=== PATIENT | female | born 1955 | race Caucasian/White ===

== ENCOUNTER → 2019-09-30 07:42 | Outpatient (CLI) | payer OTHER, SELFPAY ==
--- NOTE | 2019-09-30 | DI.MRI.S_ITS ---
PROCEDURE: MR BRAIN (IAC) WWO CON INDICATIONS: Sensorineural hearing loss, unilateral, left ear, TECHNIQUE: Noncontrast sagittal T1 spin echo, axial FLAIR, axial gradient echo, axial diffusion and ADC through the brain. Axial thin-slice 3D CISS, coronal TruFISP, axial T1 spin echo with fat saturation through the internal auditory canals. After the administration of contrast, thin slice axial and coronal T1 spin echo with fat saturation through the internal auditory canals, and axial T1 spin echo with fat saturation through the brain. COMPARISON: None. FINDINGS: Image quality: Excellent. Cerebellopontine angles: No cerebellopontine angle masses. Inner ear structures appear normally formed. No suspicious enhancement in the internal auditory canal or along the course of the 7th cranial nerve. CSF spaces: Ventricles are normal in size and shape. No extra-axial fluid collections. Basal cisterns are patent. Brain: No intracranial bleeds or mass effects. Degroot-white matter interface is intact. No abnormal intracranial enhancement. Mild diffuse age appropriate volume loss. Minimal degree of patchy high FLAIR signal within the periventricular and subcortical white matter. Diffusion weighted images demonstrate no acute ischemic insults. Brainstem appears normal. Normal intravascular flow voids are present. Skull and face: Calvarial marrow signal is normal. Orbits appear normal. Sinuses: Sinuses and mastoids are clear. IMPRESSION: 1. No aspiration for hearing loss. Negative evaluation of the internal auditory canals. 2. No acute process. No recent infarct. 3. Mild volume loss. Minimal small vessel ischemic disease. Dictated by: Karin Ledesma M.D. on 09/30/2019 at 9:43 Approved by: Karin Ledesma M.D. on 09/30/2019 at 9:45
== END ==
PROVIDERS: PCP Physician Assistant Medical; Referring Provider Otolaryngology; Visit Provider Otolaryngology
DX: H90.42 Sensorineural hearing loss, unilateral, left ear, with unrestricted hearing on the contralateral side (principal); H93.13 Tinnitus, bilateral
CPT/HCPCS: 70553

== ENCOUNTER → 2021-04-16 11:32 | Outpatient (CLI) | payer MEDICARE, OTHER, SELFPAY ==
[2021-04-16 15:31] LABS: COVID19 -Nasal RAPID Negative (Negative)
== END ==
PROVIDERS: PCP Physician Assistant Medical; Referring Provider Physician Assistant; Visit Provider Physician Assistant
DX: Z01.812 Encounter for preprocedural laboratory examination (principal); Z20.822 Contact with and (suspected) exposure to COVID-19
CPT/HCPCS: 87635; C9803

== ENCOUNTER 2021-04-17 05:53 | Day surgery (SDC) | payer MEDICARE, OTHER, SELFPAY ==
[2021-04-12 09:48] VITALS: BMI 19.1
[2021-04-17] VITALS (17 sets, daily range): BP systolic 83–144; BP diastolic 47–95; PULSE 78–95; RESP 8–18; TEMP 36.2–37.7; O2SAT 93–100; BMI 19.1
--- NOTE | 2021-04-17 06:00 | DI.RAD.S_ITS ---
PROCEDURE: XR HIP W PEL IF DONE LT 2V INDICATIONS: prosthesis placement TECHNIQUE: AP pelvis and lateral view of the left hip acquired. COMPARISON: [facility], [place], XR HIP W PEL IF DONE LT 2V, 04/17/2021, 10:25. FINDINGS: Bones: Patient is status post left hip arthroplasty, with hardware components in expected positions. The hip joint appears congruent. The visualized bony structures appear intact. Soft tissues: Overlying postoperative changes are noted. No suspicious soft tissue densities. IMPRESSION: Intraoperative images demonstrating left hip arthroplasty. Dictated by: Dang Lauren M.D. on 04/17/2021 at 14:31 Approved by: Dang Lauren M.D. on 04/17/2021 at 14:32
[2021-04-17] MEDS: CELECOXIB 200 MG CAPSULE PO (06:59)
[2021-04-17] MEDS: ACETAMINOPHEN 325 MG TABLET 975 MG PO (06:59)
[2021-04-17] MEDS: PREGABALIN 75 MG CAPSULE PO (06:59)
[2021-04-17] MEDS: VANCOMYCIN 1,000 MG/200 ML PIGGYBACK 200 MG IV (07:00)
[2021-04-17] MEDS: LACTATED RINGERS 1,000 ML 42 ML IV ×2 (07:01→09:51)
--- NOTE | 2021-04-17 07:43 | PM.PREOP ---
Pre-operative Note COVID-19 COVID-19 status: Negative Interval Note History & Physical reviewed/Exam performed by Physician: Yes Changes to H&P: No
--- NOTE | 2021-04-17 07:44 | P.OP_ITS ---
Operative Date/Time/Diagnoses Date of procedure: 04/17/21 Time of procedure: 07:55 Pre-op diagnosis: left hip OA Post-op diagnosis: same Procedure & Clinicians Procedure: left total hip arthroplasty anterior approach Same procedure as scheduled: Yes Indications: The patient has had progressively worsening left hip pain with radiographic reyes ges consistent with arthritis. Non-operative management has failed and the patient has requested total hip replacement. The risks, benefits and alternatives to surgery were discussed with the patient prior to proceeding. Risks discussed included, but were not limited to, failure to relieve pain, leg length discrepancy, dislocation, stiffness, infection, nerve damage, deep venous thrombosis, pulmonary embolism, stroke, coma, heart attack, permanent paralysis and , as well as the potential need for eventual revision of the prosthetic. Surgeon: Adelia Obrien Senior Ui Developer: Benoit Palma Anesthesia Type: General and Spinal Operative Notes Findings: Severe left hip osteoarthritis, good stability, adequate bone Closure Type: primary Specimen(s): none sent Prosthetic devices, grafts, tissues, transplants, or devices: [employer] anthology standard offset size 3, 48 mm R3 acetabulum, minus 3 x 32 mm head, two 6.5 mm screw Estimated Blood Loss (mL): 250 Blood products transfused: none Procedure in detail: The patient was brought to the operating room. Patient was carefully positioned in the supine position. Time-out was performed and antibiotics were given. Anesthesia was induced. She was positioned in the on the table in order to allow hyperextension of the hip. The left lower extremity was prepped and draped in a standard sterile fashion. An anterior left hip incision was made 1 fingerbreadth lateral to the anterior superior iliac spine and extended distally towards the greater trochanter. Dissection was carried out through skin and subcutaneous tissues. Superficial hemostasis was achieved. The fascia over the tensor fascia fredo was defined and incised with a knife. Two Allis clamps were used to grasp the fascia. Tensor fascia fredo was retracted laterally. A gelpi retractor was placed. Dissection was carried out down along the neck. The circumflex vessels were carefully identified and cauterized with the Aqua Mantis. There was good visualization of the femoral neck. A Cobra was placed superior to the neck and the gluteus fibers were carefully stripped from that superior aspect of the capsule. A 2nd retractor was placed along the inferior aspect of the neck. The rectus insertion along the capsule was partially released. A 3rd retractor that was then gently placed over the rim of the acetabulum under the rectus. Capsule was carefully incised and released from the intertrochanteric line circumferentially superior to the mid sagittal line and inferiorly to the mid sagittal line until the lesser trochanter was palpable. A tag stitch was placed both in the superior and inferior limb of the capsular insertion. Along the acetabulum capsule was also released up to the mid sagittal 12:00 position. A portion of the labrum was resected. A saw was used to perform an osteotomy at the level of the intertrochanteric line and the junction of the superior femoral neck leaving approximately 1 finger breath of residual inferior neck above the lesser trochanter. A 2nd cut was made along the femoral neck at the base of the head and a napkin ring of neck was removed. Corkscrew was placed in the femoral head and the head was removed without difficulty. Retractors were then repositioned around the acetabulum. Residual labrum was resected and additional osteophytes were removed. A reamer that was 4 mm below the templated size was placed by hand in the acetabulum and it was reamed to centralize the acetabulum. It was then reamed up to 2 under the templated size and fluoroscopy was brought in to confirm the position of the reaming and depth of reaming. I reamed 1 under the anticipated size. A trial cup was placed and noted that it was appropriately sized and fluoroscopy confirmed position and depth. The component was open and inserted without difficulty fluoroscopic imaging was used to confirm that the cup had been adequately seated and was well positioned. It was further stabilized with 2 screws. Neutral poly liner was placed. The cup was tested and noted to be stable. Attention was then directed to the femur. The femur was gently hyperextended additional capsular release was performed as needed in order to allow adequate visualization of the proximal femur with elevation of the femur. Patient was placed in a hyperextended slightly adducted position with maximum external rotation. Box osteotome was used to check for any residual neck as well as sclerotic bone along the trochanter. [place] pepper was placed in the femur. Additional broaching was performed. Canal finder was used to determine the alignment of the canal and position. Size 1 broach was placed. The canal was then appropriately broached up to the templated size as long as there was adequate stability of the broach and serial advancement of the broach without excessive impingement. Specific attention was directed at avoiding varus attempting to direct the distal aspect of the broach more anteriorly and avoiding excessive anteversion. Trial reduction showed acceptable range of motion, good stability, no posterior impingement, religion of leg length and appropriate lateral shuck. I also hyperflexed the hip and checked that there was no impingement anteriorly and there was good stability with flexion, adduction and internal rotation. Marcaine and Exparel were injected. The stem was placed without difficulty. Repeat trial reduction and x-ray showed acceptable overall position, length, and no evidence of the femoral fracture. Final head was placed. Wound was meticulously irrigated with normal saline. The hip was reduced and additional Exparel and Marcaine were injected. The capsule was closed with interrupted nonabsorbable sutures. The fascia of the tensor was closed with interrupted and running Vicryl. No drain was placed. Any tensor fascia fredo muscle that appeared to be contused or injured which was a minimal amount was carefully resected. Capsule around the tensor was injected with Exparel and Marcaine. The skin was closed with barbed stitches for the subcutaneous tissue and skin. We also used surgical glue. The wound was dressed sterilely. Brief Betadine soak was also used and was meticulously irrigated with normal saline. Patient was transferred to recovery room in satisfactory condition. Complications: none Post-operative Condition: stable Disposition: Acute Care Plan for aftercare: The patient will be maintained on a standard total hip replacement protocol with weight bearing as tolerated and anterior hip precautions. The patient will receive Aspirin and sequential compression devices for DVT prophylaxis. The patient will be discharged home when safe for the home environment.
[2021-04-17] MEDS: CEFAZOLIN 2 GM/20 ML SYRINGE IV ×2 (08:00→17:01)
[2021-04-17] MEDS: TRANEXAMIC ACID 1,000 MG VIAL 1000 MG INJ ×2 (08:05→10:00)
--- NOTE | 2021-04-17 08:22 | SUR.OPER ---
Patient supine on padded Jarrell table, one arm on padded arm board at <90, other arm padded and secured with tape across patient's chest, both legs secured in padded traction boots and positioned per surgeon, padded post at patient's groin, pressure points checked and padded.
[2021-04-17] MEDS: BUPIVACAINE LIPOSOME 266 MG/20 ML VIAL INJ (08:24)
[2021-04-17] MEDS: BUPIVACAINE 0.25% (PF) 60 ML, EPINEPHrine 0.3 MG INJ (08:25)
[2021-04-17] MEDS: SODIUM CHLORIDE IRRIG SOLUTION 250 ML, POVIDONE-IODINE SPONGE STICKS 1 APPLIC IRR (08:28)
--- NOTE | 2021-04-17 10:24 | DI.RAD.S_ITS ---
PROCEDURE: XR HIP W PEL IF DONE LT 2V INDICATIONS: TOTAL LEFT HIP REPLACEMENT TECHNIQUE: AP pelvis and lateral view of the left hip acquired. COMPARISON: [facility], [place], XR HIP W PEL IF DONE LT 2V, 04/17/2021, 10:08. [facility] [place], [place], XR PELVIS WITH LATERAL HIP LEFT, 03/01/2021, 15:12. [facility], [place], XR PELVIS WITH LATERAL HIP LEFT, 12/13/2019, 8:10. FINDINGS: Bones: Patient is status post left hip arthroplasty, with hardware components in expected positions. The hip joint appears congruent. The visualized bony structures appear intact. Soft tissues: Overlying postoperative changes are noted. No suspicious soft tissue densities. IMPRESSION: Normal postoperative examination. Dictated by: Hammad Hathaway M.D. on 04/17/2021 at 9:45 Approved by: Hammad Hathaway M.D. on 04/17/2021 at 9:46
[2021-04-17] MEDS: fentaNYL 100 MCG/2 ML INJ IV (10:40)
[2021-04-17] MEDS: HYDROMORPHONE 2 MG INJ IV ×2 (10:42→10:54)
[2021-04-17] MEDS: ONDANSETRON 4 MG/2 ML INJ IV (10:43)
--- NOTE | 2021-04-17 11:11 | SUR.PHASEI ---
Report to ALYSSA Borja. Plan to transport at 1125 due to medication hold time
--- NOTE | 2021-04-17 12:07 | PC.NURSE ---
Patient received from PACU, oriented to room and call light. VSs, pain well controlled at this time at 3/10 to left hip. Aquacel dressing in place, CDI. No urge to void yet. Monitor for void post surgery. Tolerating ice water at this time. Bilateral calf SCD's in place. Patient looking over menu, no further questions at this time. P.T. eval when appropriate, maintain anterior hip precautions. Bed alarm on for safety.
[2021-04-17] MEDS: ACETAMINOPHEN 325 MG TABLET 650 MG PO ×2 (14:45→20:53)
--- NOTE | 2021-04-17 15:36 | PT.IIE ---
Current Diagnoses Unilateral primary osteoarthritis, left hip (04/17/21) Surgery Performed Operation Date: 04/17/21 07:45 Actual Procedures p Total Hip Arthroplasty/Anterior Approach(Left) - Adelia Obrien MD Medical History (Last Updated 04/12/21 @ 10:13 by Divine Lock RN) Anxiety and depression Arthritis Easy bruisability Hearing impaired Osteoarthritis Osteoporosis Physical Therapy Inpatient Evaluation/Re-Eval M1 PT/OT-IP Prior Functional Status Start: 04/17/21 14:06 Freq: NEEDED Status: Active Protocol: Document 04/17/21 15:36 AW (Rec: 04/17/21 16:29 AW [id number]) Medical Review Prior Functional Status Medical History Reviewed Yes Communication WNL Mobility and Gait Pt states her mobility is slow to wake up, requiring stretches, limping, and coffee daily before she really feels confident and is able to move about without assistive device. She lives alone and tends to a large flock of chickens, some goats, cats, and a dog. Pt reports a fall from a ladder which was noninjurious but denies any other falls. Activities of Daily Living and IADL's Independent with ADL's and IADL's. Pt drives, manages her own meds and finances. Prior Functional Level (Other details) Pt has remote history of bilateral knee arthroscopy and reports progressively worsening right knee pain. Social History Household Members none Living Arrangements House Number of Floors (Floors) One Floor Number of Stairs To Enter/Railing? 3 DANIEL with no rail. Home Environment Standard Height Toilet,Tub/ Shower Home Equipment Four Wheel Walker,Hand Held Shower Employment Status Retired Additional Social History Comment Pt sleeps on the top layer of a trundle bed which she thinks is no taller than the hospital bed. She bought a folding tripod cane but has not used it yet. She has a sink on the right side of her toilet which she can use to help up and down. 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 She states her neighbor, Kirsten, will take her home and check on her but she has made no arrangements for anyone to stay with her. They would have to sleep on the floor and that would be a real burden. M2 PT-IP Current Condition Start: 04/17/21 14:06 Freq: NEEDED Status: Active Protocol: Document 04/17/21 15:36 AW (Rec: 04/17/21 16:29 AW [id number]) Physical Therapy Current Condition Current Condition Evaluation Date 04/17/21 Treatment Diagnosis L NICOLE with anterior approach; impaired mobility and gait. Onset Date 04/17/21 M3 PT-IP Subjective Start: 04/17/21 14:06 Freq: NEEDED Status: Active Protocol: Document 04/17/21 15:36 AW (Rec: 04/17/21 16:29 AW [id number]) Subjective Physical Therapy Visit Type Type Initial Evaluation Visit Start Time 01:56 Visit Stop Time 15:36 Total Visit Minutes 30 Physical Therapy Visit Comments Patient Comments Pt is willing to participate with PT. She would like to use the commode. Patient Goals Return home with check-ins from neighbor. Therapy Pain Assessment Pain When Pain Assessed During Mobility Pain Present Pain Present Pain Reported Location Left Hip Intensity 4 Scale Used Numeric (0 - 10) Pain Management Techniques Apply Cold,Modification of Treatment,Re-positioning M4 PT-IP Mobility and Gait Start: 04/17/21 14:06 Freq: NEEDED Status: Active Protocol: Document 04/17/21 15:36 AW (Rec: 04/17/21 16:37 AW [id number]) PT-Bed Mobility Assessment Supine to Sit Supine to Sit Contact Guard Assistance Sit to Supine Sit to Supine Minimal Assistance,1 Person Assistance Scooting Scooting to Edge of Bed Standby Assistance PT-Transfer Assessment Sit to and From Stand Sit to and from Stand Standby Assistance,Contact Guard Assistance,Use of Upper Extremities Equipment Transfer Assistive Device Gait Belt,Front Wheeled Walker Orthotic/Prosthetic Devices or Brace: No Transfers Transfer Destination Bed,Bedside Commode Transfer Technique Stand Step Pivot Transfer Ability Level of Assist Contact Guard Assistance Comments Mobility Comments Pt was lying in bed as PT arrived. BP was 141/59 HR 86 SpO2 100% on room air. She reported mild lightheadedness but wanted to get up to the commode. PT educated pt on anterior hip precautions and functional application. From flat bed, she needed CGA to move her legs to right side of bed as she would at home. She scooted forward and reported seeing double/dizziness. Symptoms subsided quickly and pt stood CGA. She used FWW to shift weight laterally as PT educated pt on WBAT status. She transferred 90 degrees to her left to the [facility] [place]. She was able to void and complete pericare. She stood SBA with cues to push off the [facility] arms and used the walker to transfer back to bed SBA. Return to supine required min A x 1 for elevation of the LLE . BP was 129/47 HR 84 and pt reported nausea. Pt was left with call light in reach and bed alarm on. PT informed RN of pt's mobility status and nausea. Gait Assessment Gait Gait Assistance Required: Contact Guard Assist Distance (Feet) 3 Able to Maintain Weight Bearing Status Yes During Gait Assistive Devices Assistive Device Gait Belt,Front Wheeled Walker Orthotic/Prosthetic Devices or Brace: No Gait Deviations General Gait Pattern Antalgic,Step-to Gait Factors Limiting Gait Function Factors Limiting Gait Function Decreased Strength,Pain Comments Gait Comments Steps taken during transfer only. Did not progress to gait due to dizziness and nausea. Stair Climbing Assessment Comments Stair Climbing Comments Not assessed. PT-Balance Assessment Sitting Balance and Reactions Static Sitting Balance Ability Good Dynamic Sitting Balance Ability Good Standing Balance and Reactions Static Standing Balance Ability Good Dynamic Standing Balance Ability Good Device Used FWW M5 PT-IP Objective Assessments Start: 04/17/21 14:06 Freq: NEEDED Status: Active Protocol: Document 04/17/21 15:36 AW (Rec: 04/17/21 16:37 AW [id number]) Orientation Orientation/Cognition Level of Alertness Alert Orientation Name,Day of Week,Place, Situation Language Function Ability No Deficits Noted Safety Awareness Understands Safety Issues Memory Description No Deficits Noted Gross Range of Motion Lower Extremity ROM Assessment Left Impaired Strength Lower Extremity Strength Assessment Left Impaired Hip 3-/5 Knee 4/5 Ankle 4+/5 Comments Strength Comments RLE grossly 4+/5 Sensation Assessment Sensation Gross Sensation WNL M6 PT-IP Treatment Start: 04/17/21 14:06 Freq: NEEDED Status: Active Protocol: Document 04/17/21 15:36 AW (Rec: 04/17/21 16:37 AW [id number]) Physical Therapy Treatment Exercises Exercises Ankle Pumps,Gluteal Sets,Heel Slides Education Education Provided Precautions,Weight Bearing Status,Post-Op Packet,Safety M7 PT-IP Assessment and Plan Start: 04/17/21 14:06 Freq: NEEDED Status: Active Protocol: Document 04/17/21 15:36 AW (Rec: 04/17/21 16:47 AW [id number]) PT Summary Assessment and Plan Potential Rehabilitation Potential Good Status of Condition at Evaluation Evolving Summary Impairments Pain,ROM,Strength,Balance,Bed Mobility,Transfers,Gait Assessment Summary Caitlyn is an active 65 yo woman seen for PT evaluation on POD0 following L NICOLE with anterior approach. She is independent in all regards at baseline and lives alone. On assessment, pt required CGA/ min assist for bed mobility and transfers. Did not progress to gait due to symptoms of nausea and lightheadedness. Discussed setting up caregiver training with her neighbor for tomorrow but pt was unsure what time her neighbor would be available. PT anticipates pt will be safe to discharge home with assist and outpatient PT once medically stable but will need to progress her gait and complete stair training ( preferably with caregiver) prior to discharge. Will continue to encourage pt to have someone stay with her for first few days if possible. She has 4WW but will likely need FWW for home. Goals Bed Mobility Goal Independent Transfer Goal Independent,Front Wheeled Walker Gait Goal Standby Assistance,Front Wheel Walker Gait Distance 150 Other Goals up/down 3 steps with cane (no rails) CGA Days to Meet Goals 2 Frequency of Treatment Frequency Of Treatment Twice a Day Treatment Plan Physical Therapy Treatment Plan Bed Mobility Training,Transfer Training,Gait Training, Therapeutic Exercise,Balance Retraining,Post Op Education, Discharge Planning,Hot or Cold Pack Other Recommendations and Next Treatment set up caregiver training for [facility] PM session or complete in AM if neighbor is present; review ther ex; gait training with FWW; stair training with or without neighbor Precautions Anterior Hip Precautions No Hip Extension,No Hip External Rotation Weight Bearing Status Weight Bearing Status Weight Bear as Tolerated Allowed Weight Bearing Amount (enter % WBAT LLE or #) (%) Recommendations To Nursing Amount of Assist Needed 1 Person Assist Discharge Recommendations PT Discharge Recommendations Home with Assistance, Outpatient PT Equipment Needed for Home Before FWW Discharge Transportation Needs at Discharge Private Vehicle
[2021-04-17] MEDS: SODIUM CHLORIDE 0.9% 250 ML 21 ML IV (17:08)
[2021-04-17] MEDS: ASPIRIN EC 81 MG TABLET PO (20:53)
[2021-04-17] MEDS: DOCUSATE 100 MG CAPSULE PO (20:53)
[2021-04-17] MEDS: MELOXICAM 7.5 MG TABLET PO (20:53)
[2021-04-17] MEDS: SODIUM CHLORIDE 0.9% FLUSH 10 ML IV (20:54)
[2021-04-18] VITALS: BP 110/64; PULSE 76; RESP 16; TEMP 37.5; O2SAT 96
[2021-04-18] MEDS: SODIUM CHLORIDE 0.9% FLUSH 10 ML IV (00:32)
[2021-04-18] MEDS: CEFAZOLIN 2 GM/20 ML SYRINGE IV (00:32)
[2021-04-18 04:10] VITALS: BP 104/57; PULSE 94; RESP 16; TEMP 37.3; O2SAT 96
[2021-04-18 07:38] LABS: Hematocrit 33.9 % (36-46); Hemoglobin 11.6 g/dL (12.0-16.0)
[2021-04-18 09:32] VITALS: BP 125/72; PULSE 89; RESP 18; TEMP 36.8; O2SAT 96
[2021-04-18] MEDS: ASPIRIN EC 81 MG TABLET PO (10:04)
[2021-04-18] MEDS: ACETAMINOPHEN 325 MG TABLET 650 MG PO (10:04)
[2021-04-18] MEDS: MELOXICAM 7.5 MG TABLET PO (10:08)
--- NOTE | 2021-04-18 10:34 | PT.IPTN ---
Addendum entered and electronically signed by Joana Huff PTA 04/18/21 12:46: 2 pm caregiver training with friend/ neighbor. Original Note: Current Diagnoses Unilateral primary osteoarthritis, left hip (04/17/21) Surgery Performed Operation Date: 04/17/21 07:45 Actual Procedures p Total Hip Arthroplasty/Anterior Approach(Left) - Adelia Obrien MD Physical Therapy Treatment Note M2 PT-IP Current Condition Start: 04/17/21 14:06 Freq: NEEDED Status: Active Protocol: Document 04/18/21 09:39 SP (Rec: 04/18/21 12:45 SP [id number]) Physical Therapy Current Condition Current Condition Evaluation Date 04/17/21 Treatment Diagnosis L NICOLE with anterior approach; impaired mobility and gait. Onset Date 04/17/21 M3 PT-IP Subjective Start: 04/17/21 14:06 Freq: NEEDED Status: Active Protocol: Document 04/18/21 09:39 SP (Rec: 04/18/21 12:45 SP [email or web address]) Subjective Physical Therapy Visit Type Type Treatment Note Visit Start Time 09:39 Visit Stop Time 10:34 Total Visit Minutes 55 Notes Vitals taken during tx: supine: BP 135/76, HR 96 bpm seated EOB: 103/53 HR 100 Stand w/ FWW: 118/68 Post mobility seated: 101/64, HR 108 nonsymptomatic throughout tx. Number of ANALYTICS INTERN Visits 1 Physical Therapy Visit Comments Patient Comments Pt is willing to participate with PT. Patient Goals Return home with check-ins from neighbor. Therapy Pain Assessment Pain When Pain Assessed During Mobility Pain Present Pain Present Pain Reported Location Left Hip Intensity 4 Scale Used 4/10 L anterior hip pain during bedmob, 5/10 during gait/ stairs Description With Movement Pain Behaviors Facial Grimacing Pain Management Techniques Apply Cold,Distraction, Modification of Treatment,Re- positioning,Timing of Activity with Medications M4 PT-IP Mobility and Gait Start: 04/17/21 14:06 Freq: NEEDED Status: Active Protocol: Document 04/18/21 09:39 SP (Rec: 04/18/21 12:45 SP [email or web address]) PT-Bed Mobility Assessment Supine to Sit Supine to Sit Standby Assistance Scooting Scooting to Edge of Bed Standby Assistance PT-Transfer Assessment Sit to and From Stand Sit to and from Stand Standby Assistance,Use of Upper Extremities Equipment Transfer Assistive Device Gait Belt,Front Wheeled Walker Orthotic/Prosthetic Devices or Brace: No Transfers Transfer Destination Chair,Toilet Transfer Technique ambulated using FWW/4WW Transfer Ability Level of Assist Standby Assistance,Use of Upper Extremities Comments Mobility Comments Pt was laying in bed when arrived. ANALYTICS INTERN reviewed and pt performed post- op LLE ex: AP, quad/glut set, HS w/ self strap assist (pt able to don/ doff strap on L foot). HOB flat supine> sit, assisted LLE with strap to EOB self post instruction, scoot to EOB SBA . Sit>stand w/FWW sBA cued push from bed, gait to toilet approx 8 ft using FWW sBA step pivot and back up fully stand >sit w/ use of grab bar on R and toilet seated LUE sBA, pt positioned RLE front for comfort. Pt voided and self pericare SBA. Sit<>stand SBA to FWW, further distance gait to sink 10 ft, good positioning FWW SBA no LOB/ stable. Pt good balance wash hands unsupported. ANALYTICS INTERN provided 4WW for assessment use at home. Pt walked further distance into hallway to stairs, completed 3 stairs Min A R SPC ORTHOTIST OR PROSTHETIST on L to assimulated home set up, returned to room w/ 4WW stagger stepping heavy initially then decreased to moderate BUE WB on 4WW with proper use of brakes during RLE advancement, w/c follow but not needed, lead LLE with good maintaining L hip precautions no hip extension or ER approx 160 ft total. Pt returned to room chair SBA with proper 4WW brake mgt. ANALYTICS INTERN stated would like CGT in afternoon with friend that will help her with stair mgt and as needed, pt to call friend to set up. Pt had call light and all needs in reach before left. Gait Assessment Gait Gait Assistance Required: Standby Assistance Distance (Feet) 160 Able to Maintain Weight Bearing Status Yes During Gait Assistive Devices Assistive Device Gait Belt,Front Wheeled Walker ,4 Wheeled Walker Orthotic/Prosthetic Devices or Brace: No Gait Deviations General Gait Pattern Antalgic,Decreased Stride Length,Step-to Gait Factors Limiting Gait Function Factors Limiting Gait Function Decreased Strength,Pain Comments Gait Comments stagger step lead LLE and step to RLE using FWW in room, 4WW in hallway SBA. 2 stand rest breaks each distance for overall and BUE tiring recovery. Stair Climbing Assessment Evaluation Level of Assist On Stairs Minimal Assistance,1 Person Assistance Devices Stair Climbing Assistive Devices Straight Cane Technique/Endurance Stair Climbing Direction Ascend and Descend Stair Climbing Technique Step to Step Number of Steps Climbed 3 Stair Climbing Set # Repetitions (reps) 1 Comments Stair Climbing Comments Step to patterning SPC in RUE, ORTHOTIST OR PROSTHETIST Min A on L, stable no LOB . Cued quad facilitation during LLE stance during RLE repositioning to decrease risk of buckling, good demonstration. ANALYTICS INTERN suggested if can borrow 2nd cane for L would be easier on not needing 2nd person support required due to no HRs on her stairs at home. PT-Balance Assessment Sitting Balance and Reactions Static Sitting Balance Ability Good Dynamic Sitting Balance Ability Good Standing Balance and Reactions Static Standing Balance Ability Good Dynamic Standing Balance Ability Good Device Used FWW/ 4WW M5 PT-IP Objective Assessments Start: 04/17/21 14:06 Freq: NEEDED Status: Active Protocol: Document 04/17/21 15:36 AW (Rec: 04/17/21 16:37 AW [id number]) Orientation Orientation/Cognition Level of Alertness Alert Orientation Name,Day of Week,Place, Situation Language Function Ability No Deficits Noted Safety Awareness Understands Safety Issues Memory Description No Deficits Noted Gross Range of Motion Lower Extremity ROM Assessment Left Impaired Strength Lower Extremity Strength Assessment Left Impaired Hip 3-/5 Knee 4/5 Ankle 4+/5 Comments Strength Comments RLE grossly 4+/5 Sensation Assessment Sensation Gross Sensation WNL M6 PT-IP Treatment Start: 04/17/21 14:06 Freq: NEEDED Status: Active Protocol: Document 04/18/21 09:39 SP (Rec: 04/18/21 12:45 SP [email or web address]) Physical Therapy Treatment Exercises Exercises Ankle Pumps,Gluteal Sets,Quad Sets,Heel Slides Knee ROM Measurement approx 80deg L knee flexion w/ use strap during HS Education Education Provided Precautions,Weight Bearing Status,Post-Op Packet,Safety Other Treatments Other Treatment Performed good recall 2/2 and performance of hip precautions and recall with HO post op ex . M7 PT-IP Assessment and Plan Start: 04/17/21 14:06 Freq: NEEDED Status: Active Protocol: Document 04/18/21 09:39 SP (Rec: 04/18/21 12:45 SP [email or web address]) PT Summary Assessment and Plan Potential Rehabilitation Potential Good Status of Condition at Evaluation Evolving Summary Impairments Pain,ROM,Strength,Balance,Bed Mobility,Transfers,Gait Progress Towards Goals Progressing Toward Goals,Slow Progress due to Pain,Slow Progress due to Activity Tolerance Assessment Summary Pt SBA- Mod I during bed mob using strap on LLE for self mobility. Sit<>stand and gait 160 ft using FWW/ 4WW SBA, stable. Completed stairs with [place] for ORTHOTIST OR PROSTHETIST on L due to only has 1 SPC at home to use on 3 stairs. Pt required increased time and standing rest breaks x2 each direction due tiring during gait and stair mgt. Will assess caregiver training with friend to support stair mgt for 2 pm tx. Recommending home when medically cleared assist of friend as needed, she is set up with outpt therapy for next week. She reported will ask friends for assist with transportation for PT appts. Goals Bed Mobility Goal Independent Transfer Goal Independent,Front Wheeled Walker Gait Goal Standby Assistance,Front Wheel Walker Gait Distance 150 Other Goals up/down 3 steps with cane (no rails) CGA Days to Meet Goals 2 Frequency of Treatment Frequency Of Treatment Twice a Day Treatment Plan Physical Therapy Treatment Plan Bed Mobility Training,Transfer Training,Gait Training, Therapeutic Exercise,Balance Retraining,Post Op Education, Discharge Planning,Hot or Cold Pack Other Recommendations and Next Treatment CGT with friend gait w/ 4WW Focus and stair mgt 1-2 SPC. Precautions Anterior Hip Precautions No Hip Extension,No Hip External Rotation Other Precautions good recall 2/2 precautions Weight Bearing Status Weight Bearing Status Weight Bear as Tolerated Allowed Weight Bearing Amount (enter % WBAT LLE or #) (%) Recommendations To Nursing Amount of Assist Needed Standby Assistance,1 Person Assist Discharge Recommendations PT Discharge Recommendations Home with Assistance, Outpatient PT Transportation Needs at Discharge Private Vehicle
--- NOTE | 2021-04-18 10:57 | PM.DS.1 ---
History of Present Illness History of Present Illness Date Patient Seen: 04/18/21 Time Patient Seen: 08:30 Chief complaint: Left hip pain Narrative: Pain is mild. Denies fever or chills. No nausea or vomiting. Patient does have assistance at home. Discharge Providers Provider Discharge Date: 04/18/21 Primary care physician: Sheila Connolly PA-C Consults: 04/17/21 06:00 Consult to Anesthesiology Routine Comment: Consulting Provider: Anesthesiologist Reason for consultation: Regional block for post operative pain control 04/17/21 11:28 Consult to Discharge Planning Routine Comment: Consult to Physical Therapy Evaluate & Treat Comment: Physician Instructions: post op NICOLE protocol Consult to Respiratory Therapy Evaluate & Treat Comment: Physician Instructions: Evaluate and treat Discharge provider: Benoit Palma PA-C Summary Hospital Course Discharge Diagnosis: Left hip osteoarthritis Hospital Course: left total hip arthroplasty anterior approach Same procedure as scheduled: Yes Indications: The patient has had progressively worsening left hip pain with radiographic changes consistent with arthritis. Non-operative management has failed and the patient has requested total hip replacement. The risks, benefits and alternatives to surgery were discussed with the patient prior to proceeding. Risks discussed included, but were not limited to, failure to relieve pain, leg length discrepancy, dislocation, stiffness, infection, nerve damage, deep venous thrombosis, pulmonary embolism, stroke, coma, heart attack, permanent paralysis and , as well as the potential need for eventual revision of the prosthetic. Surgeon: Adelia Obrien Transportation Services Representative: Benoit Palma Anesthesia Type: General and Spinal Operative Notes Findings: Severe left hip osteoarthritis, good stability, adequate bone Closure Type: primary Specimen(s): none sent Prosthetic devices, grafts, tissues, transplants, or devices: [employer] anthology standard offset size 3, 48 mm R3 acetabulum, minus 3 x 32 mm head, two 6.5 mm screw Estimated Blood Loss (mL): 250 Blood products transfused: none Patient admitted to the hospital for left total hip arthroplasty, anterior approach. Patient consented to the same. Patient taken operating room on April 17, 2021. Patient back in her room recovering well as in stable condition. Patient will be discharged home today after physical therapy if safe for home environment. Exam Vital Signs (past 8 hours): - 04/18/21 04:10 04/18/21 09:32 Temperature 99.1 F 98.2 F Pulse Rate 94 H 89 Respiratory Rate 16 18 Blood Pressure 104/57 L 125/72 Pulse Oximetry 96 96 Oxygen Delivery Method Room Air Oxygen Flow Rate 0 Narrative Exam Narrative: 65-year-old female resting comfortably in bed no apparent distress. Dressing is Clean, dry, intact.. Motor functions intact bilateral lower extremities. Sensation grossly intact to light touch bilateral lower extremities. Objective Labs Result Diagrams: 04/18/21 07:13 Labs: Laboratory Results - last 24 hr 04/18/21 07:13 Hgb 11.6 L Hct 33.9 L PFSH Medical History Anxiety and depression Arthritis Easy bruisability Hearing impaired Osteoarthritis Osteoporosis Surgical History History of bilateral carpal tunnel release History of surgery Hx of arthroscopy of left knee Hx of arthroscopy of right knee Social History household members: none Smoking Status: Never smoker alcohol intake: current Discharge Assessment & Plan Assessment and Plan Assessment: Patient progressing as expected status post left total hip arthroplasty, anterior approach Plan of Treatment: Anterior hip precautions. Discharge home today in stable condition. Discharge Plan Discharge Plan Patient Disposition: Home Discharge orders & Medications Discharge Orders: Discharge (Order); Ordered 04/18/21 Ordered By: Benoit Palma Prescriptions: New acetaminophen 325 mg Tablet 650 mg PO TID Qty: 60 0RF aspirin 81 mg Tablet,Delayed Release (Dr/Ec) 81 mg PO BID Qty: 60 0RF docusate sodium 100 mg Capsule 100 mg PO BID Qty: 20 0RF ondansetron 4 mg Tablet,Disintegrating 4 mg PO Q4HR PRN (Reason: Nausea) 20 Days 0RF oxycodone 5 mg Tablet 5 mg PO Q3HR PRN (Reason: Pain, Moderate (4-6)) Qty: 60 0RF Continued cyclobenzaprine 10 mg Tablet 10 mg PO TID PRN (Reason: Muscle Spasm) 0RF meloxicam 7.5 mg Tablet 7.5 mg PO BID 0RF Discontinued acetaminophen 500 mg Tablet 1,000 mg PO Q6H PRN (Reason: Pain) 0RF Follow up/Referrals: Adelia Obrien MD [Physician] - (2 weeks) Sheila Connolly PA-C [Primary Care Provider] - Diet/Activity/Treatments Diet: Diet as Tolerated Activity: Weight-bearing as tolerated, anterior hip precautions Skin/Wound/Dressing Care Report to your healthcare provider any signs of infection, such as:: chills, fever, increased pain, unusual drainage and unusual redness Dressing: Keep clean and dry Visit Report/Discharge Packet Instructions: DI for Hip Replacement Stand Alone Forms: Surgery Discharge Discharge Data Primary Care Provider: Sheila Connolly Attending Provider: Adelia Obrien
--- NOTE | 2021-04-18 12:24 | CM.DANOTE ---
DCP: Case received, EMR reviewed and met with patient. Introduced self and role. Was able to obtain information regarding patient's baseline activity status prior to hospitalization. DCP assessment completed with information currently available. Patient is a 65 year old female who admitted yesterday morning to the care of the orthopedic team. PCP: Dr. Connolly. Payer: confirmed: Medicare/[employer]. Patient came to the hospital via private vehicle for a surgical procedure. Patient had left total hip arthroplasty, anterior approach. Patient has history of osteoarthritis. Met with patient in her room. Patient is alert and oriented, pleasant. Patient resides in [place] alone. She is independent at her baseline. She uses no DME at baseline, and drives. Patient recently retired in September, she was working at the [employer]. She has a friend that she mentioned, named Sophie, who should be able to assist her when she goes home. P: Patient is to discharge home today when cleared by P.T. Stacey Brower RN/Licensed Nurse Practitioner Stacey Brower RN/Licensed Nurse Practitioner Discharge Planning/Care Management CM Discharge Assessment Start: 04/18/21 12:22 Freq: Status: Active Protocol: Document 04/18/21 12:23 (Rec: 04/18/21 12:24 [id number]) Discharge Planning Assessment Assigned Customer Counter Representative Stacey Brower RN/Licensed Nurse Practitioner Advance Directives? No History Provided By Patient,Medical Record Prior Living Arrangements House Household Members spouse,none Type of transporation used prior to Drives own vehicle admit Independent with ADL's Yes Is patient alert and oriented? Yes Caregiver for Another No Barriers to Discharge No Discharge Plan Home Transportation Arrangement Friend Referrals Initiated None needed Whiteboard Updated in Patient Room with Yes name and ext. # of Customer Counter Representative Review Status In Process Next Review Type Continued Stay Review Pre-Anesthesia Assessment Start: 04/12/21 09:48 Freq: Status: Active Protocol: Document 04/12/21 09:48 CAB (Rec: 04/12/21 10:32 CAB [id number]) Pre-Anesthesia Assessment Patient Information Reviewed Via Phone Assessment Assessment Completed With Patient H&P Completed Within 30 Days No: Not identified at time of review Diagnostic Results BMP/CMP,CBC,EKG Comment Outside labs/EKG scanned, COVID screen @ [facility] 04/16/21 Primary Care Provider Sheila Connolly Seen Specialist in Last 12 Months Yes Specialist Seen Orthopedist Primary Language Austrian Tailor Fitter Required No Height 5 ft 5 in Weight 115 lb Body Mass Index (BMI) 19.1 Hearing Ability Hard of Hearing Visual Assist Magnifying Glass Dentition Type Teeth, Natural Present Barriers to Learning None Hx Anesthesia Reactions Yes: Hypotension s/p anesthesia, nausea Hx Family Anesthesia Reaction No Hx Malignant Hyperthermia No Hx Blood Transfusions No Anesthesia Review Requested No alcohol intake current alcohol intake frequency holidays/special occasions only Smoking Status Never smoker Comment CBD oil Pain Present Pain Reported Musculoskeletal Symptoms Abnormal Gait,Back Pain, Difficulty Walking,Joint Pain, Neck Pain History of Falling (Recent or History of No ) Patient is completely paralyzed or No completely immobile Mental Status Oriented to own ability Is patient on oxygen? No Does patient have PETTY/SOB No Hx Sleep Apnea No Currently Taking a Beta Nelida No Can You Climb a Flight of Stairs Without Yes SOB Hx Chest Pain No Hx SOB No Hx Syncope or Dizziness No Anti-Coagulant Therapy No Has a Naval Architect Specialist No Cardiac Testing No Hx Pacemaker/ICD No Pacemaker Rep Required? No Cardiac Clearance Received Not Applicable Diet Type At Home Vegetarian dysphagia No Urinary Catheter Present No Hx Urinary Self Catheterization No Diabetes No HgbA1C 5.3 Date 03/16/21 Patient No Lactating No Hx Drug Resistant Organism No Presence of External or Internal Medical No Devices Have you had any close contact with No someone diagnosed with COVID-19? Received a COVID vaccine? Yes Received all doses? Yes Marital Status Single Lives With none Prior Living Arrangements House Number of Floors (Floors) One Floor Support System Friend(s) Does the Patient Have Assistance After Yes: Neighbor will check on pt Surgery , will not spend the night Patient Discharge Plan Description Return Home Comment Pt advised possible same day surgery per surgeon Feels Safe in Current Environment Yes Been Physically Hurt or Threatened By a No Person in Current Environment Do you have thoughts of harming yourself None or others? Are you currently considering suicide? No Do you have a plan to hurt yourself or No Plan others? Do You Have Any Spiritual Beliefs That No May Affect Your HC Choices? Do You Have Any Cultural Practices That No May Affect Your HC Choices? Who Can We Speak to About Patient's Care Family, friends Identifying Code for Release of Patient Declines to issue Information Health Care Proxy/Next of Kin Jonathan (brother) Health Care Proxy Phone Number Pt to update dos Emergency Contact Name Sara (sister) Emergency Contact Phone Number Pt to update dos Advance Directives? No Power of Landscape Architect No PAC Instructions Do not shave/clip surgical site,Durable medical equipment ,Medications to take/avoid, Nasal antibiotic,No ETOH/ petroleum product on skin DOS, NPO,Post-op transportation,Pre -surgical wash,Sensory aids, Sturdy shoes/comfortable clothes,Do not bring valuables and remove jewelry
--- NOTE | 2021-04-18 13:34 | PC.NURSE ---
Addendum entered by Maria Esther Harley R.N. 04/18/21 15:05: DIscharge instructions & RX for zofran given w/ understanding. HL discontinuecd intact. Pt escorted via W/C by staff to waiting vehicle. D/C in stable post op status. Original Note: Pt denies discomfort. Aquacell anterior dsg w/ small shadow drainage 1PA to BR w/o incidence HL LFA intact/patent Pt planning on D/C this afternoon. Satisfactory post op course. Call light w/in reach, pt calls appropriately for needs.
--- NOTE | 2021-04-18 14:26 | PT.IPTN ---
Current Diagnoses Unilateral primary osteoarthritis, left hip (04/17/21) Surgery Performed Operation Date: 04/17/21 07:45 Actual Procedures p Total Hip Arthroplasty/Anterior Approach(Left) - Adelia Obrien MD Physical Therapy Treatment Note M2 PT-IP Current Condition Start: 04/17/21 14:06 Freq: NEEDED Status: Discharge Protocol: Document 04/18/21 14:08 SP (Rec: 04/18/21 17:06 SP [id number]) Physical Therapy Current Condition Current Condition Evaluation Date 04/17/21 Treatment Diagnosis L NICOLE with anterior approach; impaired mobility and gait. Onset Date 04/17/21 M3 PT-IP Subjective Start: 04/17/21 14:06 Freq: NEEDED Status: Discharge Protocol: Document 04/18/21 14:08 SP (Rec: 04/18/21 17:06 SP [id number]) Subjective Physical Therapy Visit Type Type Treatment Note Visit Start Time 14:08 Visit Stop Time 14:26 Total Visit Minutes 18 Notes Friend Kirsten completed caregiver training and physical assist required throughout tx. Number of STRINGING MACHINE TENDER Visits 2 Physical Therapy Visit Comments Patient Comments Pt is willing to participate with PT. Patient Goals Return home with check-ins from neighbor. Therapy Pain Assessment Pain When Pain Assessed During Mobility Pain Present Pain Present Pain Reported Location Left Hip Intensity 3 Scale Used Numeric (0 - 10) Description With Movement Pain Behaviors Facial Grimacing Pain Management Techniques Distraction,Modification of Treatment,Re-positioning, Timing of Activity with Medications M4 PT-IP Mobility and Gait Start: 04/17/21 14:06 Freq: NEEDED Status: Discharge Protocol: Document 04/18/21 14:08 SP (Rec: 04/18/21 17:06 SP [id number]) PT-Bed Mobility Assessment Supine to Sit Supine to Sit Independent Scooting Scooting to Edge of Bed Independent PT-Transfer Assessment Sit to and From Stand Sit to and from Stand Standby Assistance,Use of Upper Extremities Equipment Transfer Assistive Device Gait Belt,4 Wheeled Walker Orthotic/Prosthetic Devices or Brace: No Transfers Transfer Destination Chair Transfer Technique ambulated using 4WW Transfer Ability Level of Assist Independent,Standby Assistance ,Use of Upper Extremities Comments Mobility Comments Pt supine in bed sleeping, friend Kirsten in room when arrived. Pt completed supine > sit HOB flat, scoot to EOB I. Sit>stand Mod I with proper use of 4WW brakes throughout tx. Pt walked further distance into hallway to stairs and back using 4WW with decreased BUE WB Moderate on 4WW, stagger step maintaining no hip ext/ ER precautions. Pt completed 3 stairs CGA w/ SPC in RUE and lateral pressure to L HR to assimulate wall on L has to enter at home CGA via friend/ neighbor Kirsten burris to patterning proper sequencing leading with RLE ascend/ LLE descending, stable. Pt was ableto walk back to room 212 ft total SBA- Mod I using 4WW with no rest breaks this tx just took extra time slow pacing. Pt returned to room, acquired belongings out of closet placed on 4WW and returned to chair, nursing entered stating will be in to prep for DC and pt ok to get self dressed. Pt's friend waited in hallway. Pt seated in chair with call light and all needs in reach before left . Gait Assessment Gait Gait Assistance Required: Independent,Standby Assistance Distance (Feet) 212 Able to Maintain Weight Bearing Status Yes During Gait Assistive Devices Assistive Device Gait Belt,4 Wheeled Walker Orthotic/Prosthetic Devices or Brace: No Gait Deviations General Gait Pattern Antalgic,Decreased Stride Length,Step-to Gait Factors Limiting Gait Function Factors Limiting Gait Function Decreased Strength,Pain Comments Gait Comments stagger step lead LLE and step to RLE using 4WW in hallway SBA- Mod I. Stair Climbing Assessment Evaluation Level of Assist On Stairs Contact Guard Assistance,1 Person Assistance Devices Stair Climbing Assistive Devices Straight Cane Technique/Endurance Stair Climbing Direction Ascend and Descend Stair Climbing Technique Step to Step Number of Steps Climbed 3 Stair Climbing Set # Repetitions (reps) 1 Comments Stair Climbing Comments see mobility comments PT-Balance Assessment Sitting Balance and Reactions Static Sitting Balance Ability Good Dynamic Sitting Balance Ability Good Standing Balance and Reactions Static Standing Balance Ability Good Dynamic Standing Balance Ability Good Device Used 4WW M5 PT-IP Objective Assessments Start: 04/17/21 14:06 Freq: NEEDED Status: Discharge Protocol: Document 04/17/21 15:36 AW (Rec: 04/17/21 16:37 AW [id number]) Orientation Orientation/Cognition Level of Alertness Alert Orientation Name,Day of Week,Place, Situation Language Function Ability No Deficits Noted Safety Awareness Understands Safety Issues Memory Description No Deficits Noted Gross Range of Motion Lower Extremity ROM Assessment Left Impaired Strength Lower Extremity Strength Assessment Left Impaired Hip 3-/5 Knee 4/5 Ankle 4+/5 Comments Strength Comments RLE grossly 4+/5 Sensation Assessment Sensation Gross Sensation WNL M6 PT-IP Treatment Start: 04/17/21 14:06 Freq: NEEDED Status: Discharge Protocol: Document 04/18/21 14:08 SP (Rec: 04/18/21 17:06 SP [id number]) Physical Therapy Treatment Education Education Provided Precautions,Weight Bearing Status,Post-Op Packet,Safety Other Treatments Other Treatment Performed Good demonstration of maintaining post op precautions. M7 PT-IP Assessment and Plan Start: 04/17/21 14:06 Freq: NEEDED Status: Discharge Protocol: Document 04/18/21 14:08 SP (Rec: 04/18/21 17:06 SP [id number]) PT Summary Assessment and Plan Potential Rehabilitation Potential Good Status of Condition at Evaluation Evolving Summary Impairments Pain,ROM,Strength,Balance,Bed Mobility,Transfers,Gait Progress Towards Goals Progressing Toward Goals,Slow Progress due to Pain,Slow Progress due to Activity Tolerance Assessment Summary Pt is I with bed mob, Mod I with transfers and gait using 4WW, CGA with 3 step stair mgt via neighbor to assist her at home and as needed when medically cleared to DC. Pt is already set up with outpt therapy and will coordinate transportation with friends/ neighbor. Goals Bed Mobility Goal Independent Transfer Goal Independent,Front Wheeled Walker Gait Goal Standby Assistance,Front Wheel Walker Gait Distance 150 Other Goals up/down 3 steps with cane (no rails) CGA Days to Meet Goals 2 Frequency of Treatment Frequency Of Treatment Twice a Day Treatment Plan Physical Therapy Treatment Plan Bed Mobility Training,Transfer Training,Gait Training, Therapeutic Exercise,Balance Retraining,Post Op Education, Discharge Planning,Hot or Cold Pack Other Recommendations and Next Treatment ROM, LE ex, gait w/ 4WW. Focus Precautions Anterior Hip Precautions No Hip Extension,No Hip External Rotation Other Precautions good recall 2/2 precautions Weight Bearing Status Weight Bearing Status Weight Bear as Tolerated Allowed Weight Bearing Amount (enter % WBAT LLE or #) (%) Recommendations To Nursing Amount of Assist Needed Independent,Standby Assistance Discharge Recommendations PT Discharge Recommendations Home with Assistance, Outpatient PT Transportation Needs at Discharge Private Vehicle
[2021-04-18 14:32] VITALS: PULSE 89; RESP 18; O2SAT 96
== END 2021-04-18 15:06 | disposition home or self-care (01) ==
LOC: OR 05:57 → AC 05:59
PROVIDERS: PCP Physician Assistant Medical; Referring Provider Physician Assistant Medical; Visit Provider Orthopaedic Surgery
PROC: (CPT 27130; principal; 2021-04-17 07:45)
DX: M16.12 Unilateral primary osteoarthritis, left hip (principal)
CPT/HCPCS: 27130; 73502; 76000; 85014; 85018; 97110; 97116; 97161; 97530; C1776; C9290; J0171; J0690; J1100; J1170; J2405; J2704; J3010

== ENCOUNTER → 2022-03-27 15:06 | Outpatient (CLI) | payer MEDICARE, OTHER, SELFPAY ==
[2021-04-17 11:42] VITALS: BMI 19.1
--- NOTE | 2022-03-27 | DI.MRI.S_ITS ---
PROCEDURE: MR KNEE RT WO CON INDICATIONS: KNEE PAIN TECHNIQUE: Noncontrast sagittal T2 fast spin echo with fat saturation and large [id number] thin slice T2 fast spin echo, sagittal 3-D FLASH with fat saturation; coronal T1 spin echo and PD fast spin echo with fat saturation, and axial PD fast spin echo with fat saturation through the knee. COMPARISON: [facility] [place], [place], XR KNEE 4+ VIEWS RIGHT, 03/21/2022, 9:32. FINDINGS: Image quality: Excellent. Anterior Cruciate Ligament: Intact. Posterior Cruciate Ligament: Intact. Medial Collateral Ligament: Intact. Lateral Collateral Ligament: Intact. Medial Meniscus: There is complex degenerative tearing and maceration the medial meniscus with a moderately diminutive appearance of the meniscal body. Lateral Meniscus: Intact. Medial and Lateral Tendons: The semimembranosus tendon insertions and meniscocapsular junction appear intact. Visualized portions of the pes anserinus tendons appear normal. No abnormal bursal fluid. The long and short heads of the biceps femoris tendon appear intact. The popliteus tendon appears intact. No signs of posterolateral corner injury. Iliotibial band appears normal. Anterior Structures: The quadriceps and patellar tendons appear intact. No patellar subluxation. No femoral trochlear dysplasia or ventral trochlear prominence. No edema in the infrapatellar fat pad. Bones: No acute trabecular bone injury or fracture. Medial Femorotibial Cartilage: There is diffuse full-thickness cartilage loss throughout the medial femorotibial compartment with subchondral cystic changes and subchondral edema, marginal osteophyte formation, and remodeling of the medial tibial plateau articular surface. Lateral Femorotibial Cartilage: There is moderate partial-thickness cartilage thinning in the lateral femorotibial compartment with marginal osteophyte formation. Patellofemoral Cartilage: Deep cartilage fissuring is seen at the trochlear groove and medial femoral trochlea as well as at the median ridge of the patella. Marginal osteophyte formation is present. Soft Tissues: There is a moderate joint effusion with prominent synovial hypertrophy and lipoma arborescens. Trace medial popliteal cyst is present. There is a small amount of fluid tracking along the popliteus tendon sheath. The musculature surrounding the knee is normal in bulk. IMPRESSION: 1. Diffuse full-thickness cartilage loss throughout the medial femorotibial compartment with subchondral edema and subchondral cystic changes and remodeling of the medial tibial plateau articular surface. Grade 2-3 cartilage thinning is seen in the lateral compartment and there is multifocal deep cartilage fissuring in the anterior compartment. Tricompartmental marginal osteophytes are present. 2. Diffuse complex degenerative tearing and maceration of the medial meniscus. 3. Moderate to large joint effusion with prominent synovial hypertrophy and lipoma arborescens. Approved by: Kendrick Iqbal M.D. on 03/28/2022 at 8:59
== END ==
PROVIDERS: PCP Physician Assistant Medical; Referring Provider Orthopaedic Surgery; Visit Provider Orthopaedic Surgery
DX: M23.203 Derangement of unspecified medial meniscus due to old tear or injury, right knee (principal); M17.11 Unilateral primary osteoarthritis, right knee; M25.461 Effusion, right knee
CPT/HCPCS: 73721

== ENCOUNTER → 2022-04-24 12:23 | Outpatient (CLI) | payer MEDICARE, OTHER, SELFPAY ==
[2021-04-17 11:42] VITALS: BMI 19.1
[2022-04-24 14:05] LABS: Add Manual Diff / Slide Review NO; Basophils Absolute Auto 100 /uL (0-100); Basophils Percent Auto 1.1 % (0-2); Eosinophils Absolute Auto 200 /uL (0-450); Eosinophils Percent Auto 3.2 % (2-4); Hematocrit 40.5 % (36-46); Hemoglobin 13.3 g/dL (12.0-16.0); Lymphocytes Absolute Auto 1700 /uL (1100-4500); Mean Corpuscular HGB Conc 32.8 % (30-36); Mean Corpuscular Hemoglobin 30.1 PG (26-34); Mean Corpuscular Volume 91.7 fL (80-100); Monocytes Absolute Auto 300 /uL (0-900); Monocytes Percent Auto 5.8 % (3-14); Neutrophils Absolute Auto 3500 /uL (1500-7000); Neutrophils Percent Auto 59.9 % (50-75); Platelet Count 254 X10^3/uL (150-400); Red Blood Cell Count 4.42 X10^6/uL (4.0-5.2); Red Cell Distribution Width 13.5 % (11.6-14.8); White Blood Cell Count 5.8 X10^3/uL (4.5-11.0)
[2022-04-24 14:16] LABS: Appearance Urine UA CLEAR; Bilirubin Urine UA NEGATIVE (NEGATIVE); Color Urine UA YELLOW; Glucose Urine UA NEGATIVE (Negative); Ketones Urine UA NEGATIVE (NEGATIVE); Leukocyte Esterase Urine UA NEGATIVE (NEGATIVE); Nitrite Urine UA NEGATIVE (Negative); Occult Blood Urine UA NEGATIVE (Negative); Protein Urine UA NEGATIVE (Negative); Urobilinogen Urine UA 0.2 E.U./dL (0.2)
[2022-04-24 14:17] LABS: Hemoglobin A1C% w Est Avg Glu 5.3 % (4.0-6.0)
[2022-04-24 14:33] LABS: BUN Creatinine Ratio 43.5 (6-22); Blood Urea Nitrogen 20 mg/dL (7-17); Calcium 9.4 mg/dL (8.4-10.2); Carbon Dioxide 24 mmol/L (22-32); Chloride 104 mmol/L (98-107); Estimated Glomerular Filt Rate > 60 mL/min (>60); Glucose 79 mg/dL (80-110); HEMOLYSIS < 15 (0-50); Potassium 4.1 mmol/L (3.4-5.1); Sodium 137 mmol/L (137-145); Uric Acid 2.7 mg/dL (2.5-6.2)
[2022-04-24 14:40] LABS: Bacteria Urine None Seen; Culture Indicated Urine Cult Not Indicated; RBC Urine None Seen (0-5/HPF); Squamous Epithelial Cell Urine None Seen (0-5/HPF); WBC Urine None Seen (0-5/HPF)
[2022-04-24 14:42] LABS: Rheumatoid Factor < 8.6 IU/mL (<12.0)
[2022-04-24 15:06] LABS: Erythrocyte Sedimentation Rate 11 MM/HR (0-20)
== END ==
PROVIDERS: PCP Physician Assistant Medical; Referring Provider Orthopaedic Surgery; Visit Provider Orthopaedic Surgery
DX: Z01.818 Encounter for other preprocedural examination (principal); R73.9 Hyperglycemia, unspecified; Z01.812 Encounter for preprocedural laboratory examination; N39.0 Urinary tract infection, site not specified
CPT/HCPCS: 36415; 80048; 81001; 83036; 84550; 85025; 85651; 86430; 93005; 93010

== ENCOUNTER 2022-05-15 08:50 | Observation (INO) | payer MEDICARE, OTHER, SELFPAY ==
[2021-04-17 11:42] VITALS: BMI 19.1
[2022-05-08 14:57] VITALS: BMI 19.1
[2022-05-14] VITALS (11 sets, daily range): BP systolic 102–138; BP diastolic 38–86; PULSE 69–98; RESP 12–18; TEMP 36.2–36.7; O2SAT 96–100; BMI 19.1
--- NOTE | 2022-05-14 09:17 | DI.RAD.S_ITS ---
PROCEDURE: XR KNEE RT 1TO2V INDICATIONS: UKA TECHNIQUE: 2 view(s) of the knee acquired. COMPARISON: [facility] [place], [place], XR KNEE 4+ VIEWS RIGHT, 03/21/2022, 9:32. FINDINGS: Bones: Patient is status post right knee joint medial unicondylar arthroplasty. Hardware components are in expected positions. Visualized bony structures are intact. Soft tissues: Overlying postoperative changes are noted. IMPRESSION: Expected right knee medial hemiarthroplasty postsurgical changes. Dictated by: Ramona Garcia MD, PhD on 05/14/2022 at 14:45 Approved by: Ramona Garcia MD, PhD on 05/14/2022 at 14:46
[2022-05-14] MEDS: ACETAMINOPHEN 325 MG TABLET 975 MG PO (09:51)
[2022-05-14] MEDS: VANCOMYCIN 1,000 MG/200 ML PIGGYBACK 200 MG IV (09:52)
[2022-05-14] MEDS: LACTATED RINGERS 1,000 ML 42 ML IV ×2 (09:53→12:45)
--- NOTE | 2022-05-14 10:24 | PM.PREOP ---
Pre-operative Note COVID-19 COVID-19 status: Negative Interval Note History & Physical reviewed/Exam performed by Physician: Yes Changes to H&P: No
--- NOTE | 2022-05-14 10:53 | P.OP_ITS ---
Operative Date/Time/Diagnoses Date of procedure: 05/14/22 Time of procedure: 11:10 Pre-op diagnosis: right knee OA Post-op diagnosis: same Procedure & Clinicians Procedure: Right knee medial unicompartment replacement Same procedure as scheduled: Yes Indications: The patient has had progressively worsening right knee pain with radiographic c hanges consistent with arthritis. Non-operative management has failed and the patient has requested medial unicompartment knee replacement. The risks, benefits and alternatives to surgery were discussed with the patient prior to proceeding. Risks discussed included, but were not limited to, failure to relieve pain, stiffness, infection, nerve damage, deep venous thrombosis, pulmonary embolism, stroke, coma, heart attack, permanent paralysis and , as well as the potential need for eventual revision of the prosthetic. Surgeon: Adelia Obrien Violin Mechanic: Leny Graham Anesthesia Type: General and Spinal Operative Notes Findings: Severe right knee medial compartment osteoarthritis, minimal patellofemoral OA, mild synovitis in the suprapatellar pouch region, fairly normal appearing articular cartilage in the trochlear groove and patella, adequate bone acceptable alignment and stability Closure Type: primary Specimen(s): none sent Prosthetic devices, grafts, tissues, transplants, or devices: Obrien and nephew medial unicompartment Journey 2 size 4 femur, size 3 tibia, +9 poly Estimated Blood Loss (mL): 150 Blood products transfused: none Tourniquet time (min): 74 Procedure in detail: The patient was seen in the pre-operative area, where the right knee was identified as the operative site and this was marked with my initials. The patient received pre-operative antibiotics, and was taken to the operating room and placed on the operative table in the supine position. After satisfactory anesthesia, a multimedia programmer out was performed. The right leg was encircled with a tourniquet about the proximal thigh, and the leg was prepared from the toes to the tourniquet with ChloroPrep in the usual fashion and draped through sterile drapes. The leg was elevated and exsanguinated with Eschmark bandage and the tourniquet inflated to [250] mmHg pressure. The knee was approached through an approximately 10 cm incision medial parapatella incision and carried into the knee through a medial parapatellar arthrotomy. The osteophytes and medial meniscus were removed. Next, a small amount of the anterior tibial boss was carefully resected with a saw. The guide was placed along the medial joint line. It was meticulously adjus arlet to make sure there was appropriate slope that it was at the joint line and then was pinned to the tibia and the femur. The medial femoral condylar cut was made in extension. The tibial cut was made in flexion. The bone was meticulously irrigated with normal saline. Small amount of additional meniscus was resected posterior capsule was checked and injected with Marcaine. There was moderate spurring into the notch and on the anterior aspect of the medial tibia. This was meticulously resected in order to optimally place the tibial component in the notch close to the ACL footprint. The extension gap was carefully checked with an 8 mm gap electrical and instrument technician was noted that it fit well. A small number of additional osteophytes were resected. The tibia was a size [3]. It was noted that it fit without overhang. The femur was sized and it was noted to be a [5]. The appropriate cutting guide was pinned into place and carefully positioned on the femoral condyle. Drill holes were placed. The tibia was pinned into place and drill holes were made. Trial reduction with the appropriate poly showed full range of motion and good stability at 0, 45. and 90? with normal tracking of the components without edge loading. The bone was meticulously irrigated and dried. Additional Marcaine was injected. The posterior capsule was injected with 0.25% Marcaine mixed with 20 ml Exparel for post-operative pain control. The remainder of this mixture was injected into the capsule and subcutaneous tissues during cement curing. Range of motion was [0-130], with good stability throughout the range. The trials were then remove. The cement was as applied and the final prosthetics placed. Excess cement was removed during and after cement curing. A brief medial compartment Betadine soak was performed. After confirming there was no extruded cement posteriorly, the final tibial insert was placed. The knee was copiously irrigated and the tourniquet deflated. Hemostasis was obtained. The capsule was closed with interrupted vicryl. The subcutaneous tissue was closed with barbed sutures. The skin with a running 3-0 V-Lock suture and surgical glue. An Aquacel Ag dressing was applied and the patient was taken to recovery having tolerated the procedure well. Complications: none Post-operative Condition: stable Disposition: Acute Care Plan for aftercare: The patient will be maintained on a standard partial knee replacement protocol with weight bearing as tolerated. The patient will receive low-dose aspirin. The patient will be discharged home when safe for the home environment.
[2022-05-14] MEDS: CEFAZOLIN 2 GM/100 ML PREMIX 100 ML IV ×2 (11:27→20:15)
[2022-05-14] MEDS: TRANEXAMIC ACID 1,000 MG VIAL 2000 MG INJ ×2 (11:27→12:49)
--- NOTE | 2022-05-14 11:42 | SUR.OPER ---
Supine on padded OR bed. Pillow under head, arms secured on padded armboards <90 degree abduction. Safety belt across torso. Non-operative leg secured with tape over blanket over lower leg. Operative leg secured in Godfrey boot positioner. Foam padded brace at thigh of operative leg.
[2022-05-14] MEDS: BUPIVACAINE LIPOSOME 266 MG/20 ML VIAL INJ (11:57)
[2022-05-14] MEDS: SODIUM CHLORIDE IRRIG SOLUTION 250 ML, POVIDONE-IODINE SPONGE STICKS 1 APPLIC IRR (12:00)
[2022-05-14] MEDS: BUPIVACAINE 0.5% W/ EPI (PF) 30 ML VIAL INJ (12:02)
[2022-05-14] MEDS: ONDANSETRON 4 MG/2 ML INJ IV ×2 (13:49→14:40)
--- NOTE | 2022-05-14 15:58 | SUR.PHASEII ---
Patient ambulated a few steps with assist of nurse; still c/o numbness to her feet but able to take a few steps without difficulty. Patient to bathroom to void but unable to void at this time. VSS. Patient states that her nausea is better; pain to right knee 3/10. After discussion with patient, patient decides that she wants to stay overnight. Notified Dr Obrien of plan; transfer orders in place. Notified Kirsten, patient's friend, with plan.
--- NOTE | 2022-05-14 16:33 | SUR.PHASEII ---
Addendum entered by Bertha Cha R.N. 05/14/22 16:47: 1647: Report given to ALYSSA Schafer using SBAR with time allowed for questions. Pt left unit in stable condition and in good spirits. Transported to room 211 by ALYSSA De La Fuente. Original Note: 1630: Pt tearful and concerned about discharging home as no one will be with them overnight. Plan to stay at hospital overnight, pt satisfied with this plan. Denies any distress, VSS, dressing C/D/I, taking PO without any issues and ready to transfer to room. Attempt to call report to the floor, RN busy at this time will try again shortly.
[2022-05-14] MEDS: IBUPROFEN 400 MG TABLET PO ×2 (17:12→20:26)
[2022-05-14] MEDS: ACETAMINOPHEN 325 MG TABLET 650 MG PO (17:13)
[2022-05-14] MEDS: LACTATED RINGERS 1,000 ML 100 ML IV (17:15)
[2022-05-14] MEDS: DOCUSATE 100 MG CAPSULE PO (20:26)
[2022-05-14] MEDS: ASPIRIN EC 81 MG TABLET PO (20:27)
[2022-05-14] MEDS: MELOXICAM 7.5 MG TABLET PO (20:27)
[2022-05-15] VITALS: BP 120/52; PULSE 67; RESP 18; TEMP 36.4; O2SAT 97
[2022-05-15] MEDS: ACETAMINOPHEN 325 MG TABLET 650 MG PO ×2 (00:10→06:27)
[2022-05-15] MEDS: IBUPROFEN 400 MG TABLET PO ×3 (00:11→08:16)
[2022-05-15] MEDS: CEFAZOLIN 2 GM/100 ML PREMIX 100 ML IV (03:35)
[2022-05-15 04:00] VITALS: BP 117/52; PULSE 61; RESP 17; TEMP 36.5; O2SAT 98
[2022-05-15 06:01] LABS: Hematocrit 35.6 % (36-46)
[2022-05-15 08:00] VITALS: BP 112/58; PULSE 67; RESP 17; TEMP 36.2; O2SAT 99
[2022-05-15] MEDS: DOCUSATE 100 MG CAPSULE PO (08:16)
[2022-05-15] MEDS: ASPIRIN EC 81 MG TABLET PO (08:16)
[2022-05-15] MEDS: MELOXICAM 7.5 MG TABLET PO (08:16)
[2022-05-15] MEDS: TRAMADOL 50 MG TABLET PO (08:21)
--- NOTE | 2022-05-15 08:25 | PM.DS.1 ---
History of Present Illness History of Present Illness Date Patient Seen: 05/15/22 Time Patient Seen: 08:26 Chief complaint: Knee pain Narrative: Knee pain is mild. Denies fever chills. Nausea or vomiting. Patient has been up in her room and used the bathroom. Otherwise without complaints. Discharge Providers Provider Discharge Date: 05/15/22 Primary care physician: Sheila Connolly PA-C Consults: 05/14/22 09:17 Consult to Anesthesiology Routine Comment: Consulting Provider: Anesthesiologist Reason for consultation: Regional block for post operative pain control 05/14/22 16:45 Consult to Discharge Planning Routine Comment: Consult to Physical Therapy Evaluate & Treat Comment: Physician Instructions: postop TKA protocol Discharge provider: Benoit Palma PA-C Summary Hospital Course Discharge Diagnosis: Right knee osteoarthritis Hospital Course: Right knee medial unicompartment replacement Same procedure as scheduled: Yes Indications: The patient has had progressively worsening right knee pain with radiographic changes consistent with arthritis. Non-operative management has failed and the patient has requested medial unicompartment knee replacement. The risks, benefits and alternatives to surgery were discussed with the patient prior to proceeding. Risks discussed included, but were not limited to, failure to relieve pain, stiffness, infection, nerve damage, deep venous thrombosis, pulmonary embolism, stroke, coma, heart attack, permanent paralysis and , as well as the potential need for eventual revision of the prosthetic. Surgeon: Adelia Obrien Store Warehouse Associate: Leny Graham Anesthesia Type: General and Spinal Operative Notes Findings: Severe right knee medial compartment osteoarthritis, minimal patellofemoral OA, mild synovitis in the suprapatellar pouch region, fairly normal appearing articular cartilage in the trochlear groove and patella, adequate bone acceptable alignment and stability Closure Type: primary Specimen(s): none sent Prosthetic devices, grafts, tissues, transplants, or devices: Obrien and nephew medial unicompartment Journey 2? size 4 femur, size 3 tibia, +9 poly Estimated Blood Loss (mL): 150 Blood products transfused: none Tourniquet time (min): 74 Patient admitted to the hospital for right knee medial unicompartment arthroplasty. Patient consented to the same. Patient taken operating room on May 14, 2022. Patient underwent right knee medial unicompartment replacement. Patient is back in her room recovering well as in stable condition. Patient has been up and able to urinate. Pain is well controlled. She will work with physical therapy and be discharged home today if safe for home environment. Status at Discharge Cognitive/behavioral status at discharge: at baseline, oriented Functional status at discharge: uses cane/walker Overall status at discharge: patient is progressing back to baseline Exam Vital Signs (past 8 hours): - 05/15/22 04:00 05/15/22 08:00 Temperature 97.7 F 97.1 F L Pulse Rate 61 67 Respiratory Rate 17 17 Blood Pressure 117/52 L 112/58 L Pulse Oximetry 98 99 Oxygen Flow Rate 0 0 Oxygen Delivery Method Room Air Oxygen Flow Rate 0 Narrative Exam Narrative: 66-year-old female sitting in bedside chair having breakfast in no apparent distress. Dressing is clean, dry and intact. Motor functions intact bilateral lower extremities. Sensation grossly intact to light touch bilateral lower extremities. 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 Plan of Treatment: Multimodal pain management Weight-bearing as tolerated Discharge home today after physical therapy safe for home environment. Discharge Plan Discharge Plan Patient Disposition: Home Provider Discharge Comment: Home today after PT if safe for home environment Discharge orders & Medications Discharge Orders: Discharge (Order); Ordered 05/15/22 Ordered By: Benoit Palma Prescriptions: New acetaminophen 325 mg Tablet 650 mg PO Q6HR Qty: 60 0RF aspirin 81 mg Tablet,Delayed Release (Dr/Ec) 81 mg PO BID Qty: 60 0RF docusate sodium 100 mg Capsule 100 mg PO BID Qty: 20 0RF tramadol 50 mg Tablet 50 mg PO Q6H PRN (Reason: Pain, Moderate (4-6)) Qty: 30 0RF Continued meloxicam 7.5 mg Tablet 7.5 mg PO BID Follow up/Referrals: Adelia Obrien MD [Physician] - As previously scheduled (10-14 days for postoperative visit) Sheila Connolly PA-C [Primary Care Provider] - Diet/Activity/Treatments Diet: Diet as Tolerated Other treatments: Medications: -Aspirin 81mg twice daily x6 weeks to prevent blood clots. -OTC Tylenol 500 mg 1 tablet every 4 hours as needed for pain/fever. Max 6 tablets per day. -meloxicam 7.5 mg 1 tablet twice daily as needed for pain/inflammation, take with food. -tramadol as needed for pain, sedation precautions -As needed medications: -Ducolax and /or MiraLax as needed for constipation from narcotic pain medications. -Pepcid AC as needed for stomach upset (usually from aspirin or ibuprofen). Dressing/Wound care: -Remove the Garrett wrap 48 hours after surgery. -Keep Aquacell dressing in place until postoperative follow-up office visit. -Okay to shower. Keep wound out of direct water stream. No soaking or submerging until all the scabs fall off (approximately 4-6 weeks). -No lotions, ointments, or scar creams directly to the incision until the wound is healed (4-6 weeks). No soaking or submerging until all the scabs are gone (usually 4-6 weeks). -Bruising is relatively normal and can show up 1-10 days after surgery, and can travel down to your foot or ankle. This is expected after surgery, but can be painful. -Please call the office if dressing becomes wet, soiled, or saturated. Activities: -Weight-bearing as tolerated. Use front wheeled walker, and progress to cane when safe. -Continue with home exercises as directed by your physical therapist. -Elevate ?toes above the nose if you have significant swelling in your lower leg. (A wedge pillow is easiest.) -Ice your incision as needed for pain/inflammation/swelling. Protect your skin with a folded pillowcase. -Incentive Spirometer (breathing device from hospital): 5-10xs every hour while awake for the first 1-2 weeks. Follow-up: -Follow-up with your surgeon or PA in the office in 10-14 days after surgery. -Follow-up with your surgeon 6 weeks postoperatively. Call the office if you have chest pain, shortness of breath, significant swelling that will not resolve with elevating, fever over 101?, significantly worsening pain, or are concerned you might need to go to the Emergency Room. [facility]: [phone] Skin/Wound/Dressing Care Report to your healthcare provider any signs of infection, such as:: chills, fever, night sweats, unusual drainage and unusual redness Visit Report/Discharge Packet Instructions: DI for Knee Replacement Stand Alone Forms: Patient Portal/API, Stroke Signs & Symptoms, Surgery Discharge Discharge Data Primary Care Provider: Sheila Connolly Attending Provider: Adelia Obrien
--- NOTE | 2022-05-15 09:00 | PT.IIE ---
Current Diagnoses Unilateral primary osteoarthritis, right knee (05/15/22) Surgery Performed Operation Date: 05/14/22 11:15 Actual Procedures p Medial Unicompartment Knee Arthroplasty(Right) - Adelia Obrien MD Surgical History (Last Reviewed 05/15/22 @ 08:28 by Benoit Palma PA-C) History of bilateral carpal tunnel release History of surgery History of total left hip replacement (04/17/21) Hx of arthroscopy of left knee Hx of arthroscopy of right knee Medical History (Last Reviewed 05/15/22 @ 08:28 by Benoit Palma PA-C) Anxiety and depression Arthritis Easy bruisability Hearing impaired Osteoarthritis Osteoporosis Physical Therapy Inpatient Evaluation/Re-Eval M1 PT/OT-IP Prior Functional Status Start: 05/15/22 13:10 Freq: NEEDED Status: Active Protocol: Document 05/15/22 09:00 AB (Rec: 05/15/22 13:22 AB [email or web address]) Medical Review Prior Functional Status Medical History Reviewed Yes Communication able to make needs known Mobility and Gait pt staed that she is independent with all mobilities and ambulation without AD Social History Household Members none Living Arrangements House Number of Floors (Floors) One Floor Number of Stairs To Enter/Railing? 2 steps without rails to enter Home Environment Standard Height Toilet,Tub/ Shower Home Equipment Four Wheel Walker,Straight Cane,Hand Held Shower Additional Social History Comment pt lives alone but her friend will check on her and assist her as needed; friend will drive her to her outpt PT appointments M2 PT-IP Current Condition Start: 05/15/22 13:10 Freq: NEEDED Status: Active Protocol: Document 05/15/22 09:00 AB (Rec: 05/15/22 13:22 AB [email or web address]) Physical Therapy Current Condition Current Condition Evaluation Date 05/15/22 Treatment Diagnosis s/p R uni knee; difficulty in walking Onset Date 05/14/22 M3 PT-IP Subjective Start: 05/15/22 13:10 Freq: NEEDED Status: Active Protocol: Document 05/15/22 09:00 AB (Rec: 05/15/22 13:22 AB [email or web address]) Subjective Physical Therapy Visit Type Type Initial Evaluation Visit Start Time 09:00 Visit Stop Time 09:43 Total Visit Minutes 43 Number of HORTICULTURE WORKER Visits 0 Physical Therapy Visit Comments Patient Comments agreeable to do PT Therapy Pain Assessment Pain When Pain Assessed At Rest Pain Present Pain Present Pain Reported Location Right Knee Intensity 1 Scale Used 5/10 with mobility Pain Management Techniques Distraction,Modification of Treatment,Re-positioning, Timing of Activity with Medications M4 PT-IP Mobility and Gait Start: 05/15/22 13:10 Freq: NEEDED Status: Active Protocol: Document 05/15/22 09:00 AB (Rec: 05/15/22 13:22 AB [id number]) PT-Bed Mobility Assessment Supine to Sit Supine to Sit Standby Assistance Sit to Supine Sit to Supine Standby Assistance PT-Transfer Assessment Sit to and From Stand Sit to and from Stand Standby Assistance,1 Person Assistance,Use of Upper Extremities Equipment Transfer Assistive Device Gait Belt,Front Wheeled Walker Orthotic/Prosthetic Devices or Brace: No Transfers Transfer Destination Chair Transfer Technique ambulated Transfer Ability Level of Assist Standby Assistance,Contact Guard Assistance,1 Person Assistance,Use of Upper Extremities Comments Mobility Comments pt sitting on chair. agreed to do PT. completed sit to stand SBA and ambulated in room ~ 30 ft using fWW initial CGA but after a few feet SBA. pt sat on EOB and completed sit <>supine SBA. pt ambulated using 4WW to the chair ~ 20 ft SBA with occasional cues for brake management. educated pt on stair climbing. ambulated to the platform step using 4WW ~ 30 ft SBA. completed up/down step CGA to min A and cues using SPC but needing M[employer]IE [employer]AN for descending steps. pt ambulated back to her room using 4WW SBA. sat on the chair and positioned. call light and table placed within reach. informed pt regarding caregiver training and stated that she can instruct her friend on how to assist her. stated that she has a previous hip surgery and her friend assisted her with stair climbing. pt declined caregiver training. informed pt on how to use safety belt and to have her friend assist her and hold on to her with belt. pt understood and agreed. Gait Assessment Gait Gait Assistance Required: Standby Assistance,Contact Guard Assist Distance (Feet) 30 Able to Maintain Weight Bearing Status Yes During Gait Assistive Devices Assistive Device Gait Belt,Front Wheeled Walker Orthotic/Prosthetic Devices or Brace: No Gait Deviations General Gait Pattern Decreased Stride Length, Decreased Feet Clearance Factors Limiting Gait Function Factors Limiting Gait Function Decreased Activity Tolerance, Decreased Strength,Limited Range of Motion,Pain,Poor Balance Stair Climbing Assessment Evaluation Level of Assist On Stairs Contact Guard Assistance, Minimal Assistance,1 Person Assistance Devices Stair Climbing Assistive Devices Straight Cane Technique/Endurance Stair Climbing Direction Ascend and Descend Stair Climbing Technique Step to Step Number of Steps Climbed 1 Query Text: Stair Climbing Set # Repetitions (reps) 2 PT-Balance Assessment Sitting Balance and Reactions Static Sitting Balance Ability Normal Dynamic Sitting Balance Ability Normal Standing Balance and Reactions Static Standing Balance Ability Good Dynamic Standing Balance Ability Fair Device Used 4WW M5 PT-IP Objective Assessments Start: 05/15/22 13:10 Freq: NEEDED Status: Active Protocol: Document 05/15/22 09:00 AB (Rec: 05/15/22 13:22 [email or web address]) Orientation Orientation/Cognition Level of Alertness Alert Orientation Name,Place,Situation Language Function Ability No Deficits Noted Safety Awareness Understands Safety Issues Memory Description No Deficits Noted Gross Range of Motion Lower Extremity ROM Assessment Right Impaired Impairments R knee flexion: ~ 70 deg Strength Lower Extremity Strength Assessment Right Impaired Hip 4/5 Knee 4-/5 Coordination Assessment Gross Coordination Gross Coordination WNL Sensation Assessment Sensation Gross Sensation WNL Muscle Tone Muscle Tone WNL Yes M6 PT-IP Treatment Start: 05/15/22 13:10 Freq: NEEDED Status: Active Protocol: Document 05/15/22 09:00 AB ([facility] Treatment Education Education Provided Precautions,Weight Bearing Status,Post-Op Packet,Safety M7 PT-IP Assessment and Plan Start: 05/15/22 13:10 Freq: NEEDED Status: Active Protocol: Document 05/15/22 09:00 AB (Rec: 05/15/22 [email or web address] PT Summary Assessment and Plan Potential Rehabilitation Potential Good Status of Condition at Evaluation Stable Summary Impairments Pain,ROM,Strength,Balance, Coordination,Sensation,Tone, Cognition,Bed Mobility, Transfers,Gait,Activity Tolerance Assessment Summary pt needing SBA with mobility using 4WW but needing CGA to min A with stair climbing using SPC. pt declined caregiver training but instructed pt on how to direct her friend to assist her. pt plans to go home and friend will assist her as needed. stated that she has outpt PT set up and her friend will drive her. pt may go home when medicall stable. Goals Bed Mobility Goal Independent Transfer Goal Independent,Four Wheeled Walker Gait Goal Independent,Four Wheel Walker Gait Distance 250 Other Goals up/down 2 steps using SPC SBA Days to Meet Goals 5 Frequency of Treatment Frequency Of Treatment Twice a Day Treatment Plan Physical Therapy Treatment Plan Bed Mobility Training,Transfer Training,Gait Training, Therapeutic Exercise,Balance Retraining,Post Op Education, Discharge Planning,Hot or Cold Pack,Neuromuscular Re-ed, Coordination Retraining,Manual Therapy Weight Bearing Status Weight Bearing Status Weight Bear as Tolerated Allowed Weight Bearing Amount (enter % RLE WBAT or #) (%) Recommendations To Nursing Amount of Assist Needed Standby Assistance Discharge Recommendations PT Discharge Recommendations Home with Assistance, Outpatient PT Transportation Needs at Discharge Private Vehicle
== END 2022-05-15 11:17 | disposition home or self-care (01) ==
LOC: OR 09:36 → AC 09:36
PROVIDERS: Admitting Provider Orthopaedic Surgery; PCP Physician Assistant Medical; Referring Provider Orthopaedic Surgery; Visit Provider Orthopaedic Surgery
PROC: (CPT 27446; principal; 2022-05-14 11:15)
DX: M17.11 Unilateral primary osteoarthritis, right knee (principal)
CPT/HCPCS: 27446; 36415; 73560; 85014; 85018; 97116; 97161; C1776; G0378; C1713; C9290; J0690; J1100; J2405; J2704; J3010

== ENCOUNTER → 2022-10-10 12:14 | Outpatient (CLI) | payer MEDICARE, OTHER, SELFPAY ==
[2022-05-14 17:27] VITALS: BMI 19.1
== END ==
PROVIDERS: Family Provider Physician Assistant Medical; PCP Physician Assistant Medical; Referring Provider Anesthesiology; Visit Provider Anesthesiology
DX: M54.12 Radiculopathy, cervical region (principal)
CPT/HCPCS: 95886; 95913

== ENCOUNTER 2022-12-25 08:10 | Outpatient (CLI) | payer MEDICARE, OTHER, SELFPAY ==
[2022-05-14 17:27] VITALS: BMI 19.1
[2022-12-25] VITALS (10 sets, daily range): BP systolic 106–149; BP diastolic 57–74; PULSE 78–98; RESP 17–20; TEMP 36.1; O2SAT 98–100
--- NOTE | 2022-12-25 08:12 | DI.RAD.S_ITS ---
PROCEDURE: PAIN C/T INTERLAMINAR INJECT INDICATIONS: RADICULOPATHY COMPARISON: None. FINDINGS: Fluoroscopic spot filming was performed to verify placement of spinal needles at the C7-T1 level(s), as labeled on the films. Appropriate location(s) of the needle tip(s) was confirmed by injection of iodinated contrast. IMPRESSION: C7-T1 interlaminar epidural steroid injection. Dictated by: Ezra Zamora M.D. on 12/25/2022 at 10:08 Approved by: Ezra Zamora M.D. on 12/25/2022 at 10:08
[2022-12-25] MEDS: MIDAZOLAM 2 MG/2 ML VIAL 1 MG IV ×2 (08:43→08:50)
[2022-12-25] MEDS: DEXAMETHASONE 10 MG/ML VIAL INJ (08:49)
[2022-12-25] MEDS: IOPAMIDOL 15 ML VIAL 3 ML INJ (08:50)
--- NOTE | 2022-12-25 09:05 | P.PCN_ITS ---
Date/Time/Diagnoses Date of procedure: 12/25/22 Time of procedure: 09:00 Procedure Notes Physician: Hugo Kennedy Total Fluoroscopy time (seconds): 24 Total sedation minutes: 14 Procedure in detail & Post-procedure care: C7-T1 Interlaminar Epidural Steroid Injection Indications: Caitlyn is presenting for treatment of cervical radiculopathy with neck and arm pain. Preoperative diagnosis: Cervical radiculopathy Postoperative diagnosis: Same Focused Examination: Ax3 Mood and affect are normal Vital Signs: VSS ASA: 2 Consent: Following review of allergies and potential side effects/complications, including, but not necessarily limited to, infection, allergic reaction, local tissue breakdown, stroke, temporary or permanent nerve injury, paralysis, and possible , the patient indicated that they understood and agreed to proceed.? An informed consent document was signed by the patient, witnessed by a nurse and placed in the patient's chart.? Additionally, other treatment options including medications and physical therapy were reviewed with the patient. All questions were answered. Site was then marked. Anesthesia: After review of previous anesthetic history and IV conscious sedation, the patient was deemed safe to proceed with today's procedure with IV conscious sedation. IV sedation was accomplished with midazolam 2 mg administered by the RN after physician order. Sedation was titrated to patient comfort during the course of the procedure. Patient remained responsive to all verbal commands. Position: Prone Monitoring: NIBP, Pulse oximetry, 3 lead EKG Needle used: 18 G 3.5? Tuohy Contrast: Isovue 300-M 2 mL Injectate: Dexamethasone 7.5 mg followed by Normal Saline 2 mL Technique: The skin was prepped with chloraprep and then draped in a sterile fashion. Time out was performed as per protocol. Oxygen applied via NC. Skin and subcutaneous structures of the needle entry site was then infiltrated with 3 mL of lidocaine 1%. Under AP, lateral and contralateral oblique fluoroscopic control, the Tuohy needle was guided into the C7-T1 epidural space. The space was accessed with loss of resistance technique. Isovue 300-M was then injected and the spread was consistent with the epidural space. There was no evidence for intravascular or intrathecal uptake. After negative aspiration, the above- mentioned injectate was then slowly administered and the needle withdrawn. The patient expressed no unusual discomfort or paresthesias during the injection. Band-Aids applied to injection sites. EBL: less than 1 ml Complications: None Post Procedure: Patient was taken to the recovery and monitored. The patient was provided a Pain Log to continue to record the patient's response to the target- specific procedure prior to the patient's follow-up visit with the referring physician. Patient was stable upon discharge. Detailed post procedure instructions were provided. Patient was asked to call in the event of worsening pain, fever, weakness, numbness or bladder or bowel incontinence.
== END 2022-12-25 09:24 | disposition home or self-care (01) ==
LOC: RAD 08:11
PROVIDERS: Family Provider Physician Assistant Medical; PCP Physician Assistant Medical; Referring Provider Anesthesiology; Visit Provider Anesthesiology
DX: M54.12 Radiculopathy, cervical region (principal)
CPT/HCPCS: 62321; 99152; J1100; J2250

== ENCOUNTER 2023-11-26 08:51 | Outpatient (CLI) | payer MEDICARE, OTHER, SELFPAY ==
[2022-05-14 17:27] VITALS: BMI 19.1
[2023-11-26] VITALS (7 sets, daily range): BP systolic 124–153; BP diastolic 61–82; PULSE 76–99; RESP 8–17; TEMP 36.6; O2SAT 97–100
[2023-11-26] MEDS: MIDAZOLAM 2 MG/2 ML VIAL IV (09:26)
[2023-11-26] MEDS: iopamidoL 15 ML VIAL 3 ML INJ (09:29)
[2023-11-26] MEDS: DEXAMETHASONE 10 MG/ML VIAL INJ ×2 (09:29→09:38)
--- NOTE | 2023-11-26 09:30 | DI.RAD.S_ITS ---
PROCEDURE: PAIN C/T INTERLAMINAR INJECT INDICATIONS: CERVICAL STENOSIS COMPARISON: [facility], , PAIN C/T INTERLAMINAR INJECT, 12/25/2022, 8:48. FINDINGS: Fluoroscopic spot filming was performed to verify placement of spinal needles at the C7-T1 level(s), as labeled on the films. Appropriate location(s) of the needle tip(s) was confirmed by injection of iodinated contrast. IMPRESSION: Fluoro guidance was provided intraoperatively for C7-T1 interlaminar GLENNA performed by ordering physician. Dictated by: Hill Rosen M.D. on 11/26/2023 at 16:26 Approved by: Hill Rosen M.D. on 11/26/2023 at 16:27
--- NOTE | 2023-11-26 09:43 | P.PCN_ITS ---
Date/Time/Diagnoses Date of procedure: 11/26/23 Time of procedure: 09:30 Procedure Notes Physician: Hugo Kennedy Total Fluoroscopy time (seconds): 18 Total sedation minutes: 13 Procedure in detail & Post-procedure care: C7-T1 Interlaminar Epidural Steroid Injection Indications: Caitlyn is presenting for treatment of cervical radiculopathy with neck and arm pain. Preoperative diagnosis: Cervical radiculopathy Postoperative diagnosis: Same Focused Examination: Ax3 Mood and affect are normal Vital Signs: VSS ASA: 2 Consent: Risks, benefits and alternatives discussed at a prior clinic visit and the patient voiced understanding at that time. Prior to today's injection, we again went over the risks, benefits and alternatives. Following review of allergies and potential side effects/complications, including, but not nece ssarily limited to, infection, allergic reaction, local tissue breakdown, stroke, temporary or permanent nerve injury, paralysis, and possible , the patient indicated that they understood and agreed to proceed.? A consent document was signed by the patient, witnessed by a nurse and placed in the patient's chart.? Additionally, other treatment options including medications and physical therapy were reviewed with the patient. All questions were answered. Site was then marked. Anesthesia: After review of previous anesthetic history and IV conscious sedation, the patient was deemed safe to proceed with today's procedure with IV conscious sedation. IV sedation was accomplished with midazolam 2 mg administered by the RN after physician order. Sedation was titrated to patient comfort during the course of the procedure. Patient remained responsive to all verbal commands. Position: Prone Monitoring: NIBP, Pulse oximetry, 3 lead EKG Needle used: 18 G 3.5? Tuohy Contrast: Isovue 300-M 2 mL Injectate: Dexamethasone 10 mg followed by Normal Saline 2 mL Technique: The skin was prepped with chloraprep and then draped in a sterile fashion. Time out was performed as per protocol. Oxygen applied via NC. Skin and subcutaneous structures of the needle entry site was then infiltrated with 3 mL of lidocaine 1%. Under AP, lateral and contralateral oblique fluoroscopic control, the Tuohy needle was guided into the C7-T1 epidural space. The space was accessed with loss of resistance technique. Isovue 300-M was then injected and the spread was consistent with the epidural space. There was no evidence for intravascular or intrathecal uptake. After negative aspiration, the above- mentioned injectate was then slowly administered and the needle withdrawn. The patient expressed no unusual discomfort or paresthesias during the injection. Band-Aids applied to injection sites. EBL: less than 1 ml Complications: None Post Procedure: Patient was taken to the recovery and monitored. The patient was provided a Pain Log to continue to record the patient's response to the target- specific procedure prior to the patient's follow-up visit with the referring physician. Patient was stable upon discharge. Detailed post procedure instructions were provided. Patient was asked to call in the event of worsening pain, fever, weakness, numbness or bladder or bowel incontinence.
== END 2023-11-26 10:09 | disposition home or self-care (01) ==
LOC: RAD 08:52
PROVIDERS: Family Provider Physician Assistant Medical; PCP Physician Assistant Medical; Referring Provider Anesthesiology; Visit Provider Anesthesiology
DX: M54.12 Radiculopathy, cervical region (principal)
CPT/HCPCS: 62321; 99152; J1100; J2250

== ENCOUNTER → 2024-07-26 13:21 | Outpatient (CLI) | payer MEDICARE, OTHER, SELFPAY ==
[2023-12-16 14:49] VITALS: BMI 19.1
--- NOTE | 2024-07-26 13:23 | DI.RAD.S_ITS ---
PROCEDURE: XR CERVICAL SPINE 4V OR 5V INDICATIONS: NECK PAIN TECHNIQUE: 5 views of the cervical spine acquired. COMPARISON: None. FINDINGS: Bones: No fractures or dislocations to the T1 level. Oblique images demonstrate no bony foraminal stenoses. Moderate to severe, multilevel degenerative disc disease, most prominent at C4-5, C5-6, C6-7. Multilevel facet arthrosis, with associated bilateral neural foraminal narrowing from C4 through C6. Soft tissues: No prevertebral soft tissue swelling. IMPRESSION: Moderate to severe, multilevel degenerative disc disease and diffuse facet arthrosis. Dictated by: Gaurva Escalante M.D. on 07/26/2024 at 14:18 Approved by: Gaurav Escalante M.D. on 07/26/2024 at 14:19
== END ==
PROVIDERS: Family Provider Physician Assistant Medical; PCP Physician Assistant Medical; Referring Provider Physical Medicine & Rehabilitation; Visit Provider Physical Medicine & Rehabilitation
DX: M47.812 Spondylosis without myelopathy or radiculopathy, cervical region (principal); M50.321 Other cervical disc degeneration at C4-C5 level; M48.02 Spinal stenosis, cervical region
CPT/HCPCS: 72050